=== PATIENT | male | born 1990 | race Caucasian/White ===

== ENCOUNTER 2023-07-22 18:05 | Emergency (ER) | payer BC ==
[~2023-07-22] VITALS: Ht 177.8 cm; Wt 63.5 kg
[2023-07-22 20:00] VITALS: O2SAT 98
== END 2023-07-22 23:42 | disposition left against medical advice (07) ==
LOC: ER 18:08
DX: Z53.21 Procedure and treatment not carried out due to patient leaving prior to being seen by health care provider (principal)
CPT/HCPCS: A4663

== ENCOUNTER 2023-07-23 00:45 | Emergency (ER) | payer BC ==
[~2023-07-23] VITALS: Ht 177.8 cm; Wt 63.5 kg
[2023-07-23 00:55] VITALS: O2SAT 97
== END 2023-07-23 01:37 | disposition left against medical advice (07) ==
LOC: ER 00:48
DX: Z53.21 Procedure and treatment not carried out due to patient leaving prior to being seen by health care provider (principal)
CPT/HCPCS: A4663